=== PATIENT | female | born 1990 | race Caucasian/White ===

== ENCOUNTER 2019-12-06 09:25 | Outpatient (CLI) | payer OTHER, MEDICAID, SELFPAY ==
[2019-12-06] VITALS (21 sets, daily range): BP systolic 0–123; BP diastolic 0–82; PULSE 90–114; RESP 15; TEMP 36.8; BMI 31.8
== END 2019-12-06 12:44 | disposition home or self-care (01) ==
LOC: OPOB 09:34 → OBGYN 12:36 → OPOB 12-08 08:27
PROVIDERS: Family Provider Family Medicine; Visit Provider Family Medicine
DX: O46.90 Antepartum hemorrhage, unspecified, unspecified trimester (principal); Z3A.00 Weeks of gestation of pregnancy not specified
CPT/HCPCS: 99211

== ENCOUNTER 2019-12-07 01:50 | Inpatient (IN) | payer OTHER, MEDICAID, SELFPAY ==
[2019-12-07] VITALS (91 sets, daily range): BP systolic 90–149; BP diastolic 52–82; PULSE 67–126; RESP 16–20; TEMP 36.7–37.2; O2SAT 97–100
[2019-12-07] MEDS: lactated ringers 1,000 ML 999 ML IV ×2 (02:45→04:20)
[2019-12-07 02:47] LABS: Basophils % 0.2 %; Eosinophils # 0.1 10^3/uL (0.0-0.8); Eosinophils % 0.4 %; Hematocrit 33.2 % (37.0-47.0); Hemoglobin 10.8 g/dL (11.5-15.3); Lymphocytes # 2.9 10^3/uL (0.8-4.8); Mean Corpuscular HGB Conc 32.5 g/dL (30.0-36.0); Mean Corpuscular Hemoglobin 28.1 pg (28.0-34.0); Mean Corpuscular Volume 86.2 fL (81-99); Mean Platelet Volume 11.9 fL (7.4-10.4); Monocytes # 0.8 10^3/uL (0.2-0.9); Monocytes % 5.8 %; Neutrophils # 9.2 10^3/uL (1.8-7.7); Neutrophils % 70.8 %; Nucleated Red Blood Cells % 0 %; Platelet Count 219 10^3/cmm (130-400); Red Blood Count 3.85 10^6/uL (4.1-5.3); Red Cell Distribution Width 13.2 % (12.1-15.1)
--- NOTE | 2019-12-07 04:03 | ANES.PREANE2 ---
Pre-Anesthetic Assessment Pre-Anesthetic Assessment: Height/Weight: Height 1.57 m Pulse BP Pulse Ox 90 107/67 100 12/07/19 04:02 12/07/19 04:02 12/07/19 04:02 Proposed Procedure: epidural Familial anesthetic complications: none Was Beta Mike taken within 24 hours: N/A Last Intake: 21:00 Social: Social History: No alcohol and No tobacco Exam: Pre-Anes Outpt Exam: alert, oriented x 3, clear to auscultation bilaterally and regular rate & rhythm Airway: Submandibular: WNL Cervical ROM: WNL MP: 2 Pulmonary: Pulmonary: None reported CV/HEM: CV/HEM: None reported : : None reported Hepatic: Hepatic: None reported GI: GI: None reported Metabolic: Metabolic: None reported Musc/skel: Musc/skel: None reported Neuropsych: Neuropsych: None reported Anesthetic Plan: ASA status: 2 Anesthesia: Anesthesia Evaluation and Regional (specify below) Other: lumbar epidural catheter Risk of > 500 ml blood loss (7ml/kg in children): No Data Anesthesia CBC & Chem 7: 12/07/19 02:30 Other Labs: Laboratory Results - last 48 hr 12/07/19 02:30 WBC 13.0 H RBC 3.85 L Hgb 10.8 L Hct 33.2 L MCV 86.2 MCH 28.1 MCHC 32.5 RDW 13.2 Plt Count 219 MPV 11.9 H Neut % (Auto) 70.8 Lymph % (Auto) 22.0 [place] % (Auto) 5.8 Eos % (Auto) 0.4 Baso % (Auto) 0.2 Neut # (Auto) 9.2 H Lymph # (Auto) 2.9 [place] # (Auto) 0.8 Eos # (Auto) 0.1 Baso # (Auto) 0.0 Nucleated RBC % (auto) 0 Nucleated RBCs # 0.0 Cardiac Studies: No Data to Display
--- NOTE | 2019-12-07 04:07 | ANES.PROC ---
Anesthesia Procedures Procedure/Date: 12/07/19 epidural Epidural: Time Out Performed: Yes Consents Signed: Procedure Consent Consent: from patient, risks and benefits reviewed and patient agrees to proceed Lumbar Level: L3-L4 Epidural position: sitting Epidural procedure: sterile prep of area, 1% lidocaine to numb the area (2.5cc), 18 g needle, negative for paresthesia passed, neg for paresthesia, test dose given (at 0340), 1.5% xylocaine 1:200k epi (3cc), 0.2% Ropivacaine bolus ml (7.2cc via clinician bolus from pump), no systemic response, sterile dressing applied, L.U.D. no apparent complications and 0.2% Ropiavacaine @ mls/hr (11cc/hr)
[2019-12-07] MEDS: ondansetron 2 mg/ML SDV 2 mL 4 MG IVP (11:51)
[2019-12-07] MEDS: dextrose 5%-lactated ringers 1,000 ML 125 ML IV (14:26)
[2019-12-07] MEDS: oxytocin 30 UNIT/500 ML BAG 600 UNIT IV (14:27)
--- NOTE | 2019-12-07 14:46 | PM.DELIVERY ---
 Delivery Note: Date of delivery: December 07, 2019 Pre-Delivery Course: The patient is a 2 para 1-0-0-1 40-week gestational age female. The patient had an unremarkable . She had consistent repeated care. Her labs were within normal limits with exception of a blood type of O+. She was GBS negative. Her glucose screen was also negative. The patient presented to the hospital last night in active labor. Her cervix was changing. Her amniotic sac was intact. An epidural was placed. An amniotomy was performed. She progressed to complete without difficulty. She labor down for about an hour. Delivery: DELIVERY: The patient progressed to complete without difficulty. She delivered a male with a weight of 8 pounds 3 ounces with Apgars of 8, 9. The baby was delivered from the BEBO position. The baby's mouth and nose were suctioned at the site of the perineum. The baby was then completely delivered and placed on the mother's abdomen. The cord was then clamped and cut. There was no nuchal cord. There was no meconium. The placenta and 3 vessel cord were delivered intact shortly thereafter. The perineum and vaginal vault were carefully examined. A second-degree posterior midline tear was noted. It was repaired in the usual fashion with 3-0 Vicryl.. Both the mother and the baby were in stable condition. Blood loss was 100 cc. Post-Delivery Status: Good A&P Assessment and plan (1) 40 weeks gestation of : Status: Acute Code(s): Z3A.40 - 40 weeks gestation of (2) Spontaneous vaginal delivery: Status: Acute Code(s): O80 - Encounter for full-term uncomplicated delivery Coding Level of Care Code Acute Data Communications Software Consultant for Chg Fwd Diagnoses 40 weeks gestation of Z3A.40 Spontaneous vaginal delivery O80
[2019-12-07] MEDS: lanolin oint 7 gm 1 APPLIC TOPICAL (17:07)
[2019-12-07] MEDS: docusate sodium 100 mg Capsule PO (17:08)
[2019-12-07] MEDS: benzocaine-menthol 78 gm Canister 1 SPRAY TOPICAL (17:08)
[2019-12-08 00:20] VITALS: BP 108/69; PULSE 69; RESP 16; TEMP 36.6
[2019-12-08 02:00] VITALS: BP 109/71; PULSE 80; RESP 16; TEMP 36.6
[2019-12-08 03:06] LABS: Hematocrit 31.1 % (37.0-47.0); Mean Corpuscular HGB Conc 32.2 g/dL (30.0-36.0); Mean Corpuscular Hemoglobin 28.1 pg (28.0-34.0); Mean Corpuscular Volume 87.4 fL (81-99); Mean Platelet Volume 11.7 fL (7.4-10.4); Platelet Count 197 10^3/cmm (130-400); Red Blood Count 3.56 10^6/uL (4.1-5.3); Red Cell Distribution Width 13.3 % (12.1-15.1); White Blood Count 16.9 10^3/uL (4.0-10.0)
--- NOTE | 2019-12-08 07:54 | PM.OBGYDC ---
Discharge Providers WELLNESS PROGRAM MANAGER Date of Admission: 12/07/19 01:50 Date of Discharge: 12/08/19 Attending Provider at Admission: Hector Forbes MD Attending Provider at Discharge: Hector Forbes MD Diagnoses at Discharge Discharge Diagnosis (1) 40 weeks gestation of : Status: Acute (2) Spontaneous vaginal delivery: Status: Acute Reason for Visit Reason for Visit: Reason For Visit: CONTRACTIONS Hospital Course Hospital Course: The patient presented to the hospital in active labor. An epidural was placed. An amniotomy was performed. She progressed to complete and had an unremarkable delivery of a healthy-appearing male . Her course was also unremarkable. She breast-fed well. Her bleeding was within normal limits. Her pain was well controlled. Information Peripartum Data: Infant Delivery Method: Vaginal Physical Exam Narrative: EXAM NARRATIVE: The patient is alert. She appears comfortable. Her heart has a regular rate and rhythm with no murmurs appreciated. Lungs are clear to auscultation bilaterally. Her fundus is firm and below the umbilicus. Urinary Catheter Management^: Jimenes Latex: Cath Placed During This Visit: yes Urethral Indwelling: No Urinary Catheter Date of Insertion: 12/07/19 Urinary Catheter Time of Insertion: 04:10 Discharge Data Data Completed and Pending: Labs from last 24 hours 12/08/19 03:02 WBC 16.9 H RBC 3.56 L Hgb 10.0 L Hct 31.1 L MCV 87.4 MCH 28.1 MCHC 32.2 RDW 13.3 Plt Count 197 MPV 11.7 H Vitals: The patient presented to the hospital in active labor.Last Vital Signs Temp 97.9 F 12/08/19 02:00 Pulse 80 12/08/19 02:00 Resp 16 12/08/19 02:00 BP 109/71 12/08/19 02:00 Pulse Ox 97 12/07/19 20:20 Discharge Plan Discharge Patient Disposition: Home, Self-Care Condition: Stable Prescriptions: New ibuprofen 800 mg Tablet 800 mg PO TID Qty: 30 RF: 0 Continued Multivitamins 28 mg iron- 800 mcg Tablet 1 tab PO DAILY RF: 0 Discharge Orders: Discharge Order (Routine); Ordered 12/08/19 Ordered By: Hector Forbes Discharge Diet: Regular Discharge Activity: Limit activity as instructed Patient Instructions: Vitamins (By mouth), Breast Care for the Breast Feeding Mother (DC), Vaginal Delivery (DC), OB Discharge Report, OB Food/Drug Interaction Guide, OB Care at Home, OB Home Care, OB Proud Parent Packet Discharge Attestations WELLNESS PROGRAM MANAGER Time Spent in Discharge Care*: less than 30 min Coding Level of Care Code Acute Retail Salesworker for Chg Fwd Diagnoses 40 weeks gestation of Z3A.40 Spontaneous vaginal delivery O80
[2019-12-08] MEDS: prenatal vitamin Capsule 1 CAP PO (09:07)
[2019-12-08] MEDS: docusate sodium 100 mg Capsule PO (09:08)
[2019-12-08 09:15] VITALS: BP 90/55; PULSE 88; RESP 16; TEMP 36.5
[2019-12-08 16:41] VITALS: BP 105/67; PULSE 75; RESP 16; TEMP 36.6; O2SAT 98
== END 2019-12-08 15:30 | disposition home or self-care (01) | DRG 807 ==
LOC: OBGYN 18:07
PROVIDERS: Admitting Provider Family Medicine; Family Provider Family Medicine; Visit Provider Family Medicine
DX: O70.1 Second degree perineal laceration during delivery (principal); Z37.0 Single live birth; Z3A.40 40 weeks gestation of pregnancy
CPT/HCPCS: 12345; 36415; 51702; 59409; 85025; 85027; 96375; 99211; J2405; J2795